=== PATIENT | female | born 1965 | race Caucasian/White ===

== ENCOUNTER 2022-04-14 07:24 | Outpatient (CLI) | payer OTHER, SELFPAY ==
[2022-04-14 07:39] VITALS: BMI 29.1
--- NOTE | 2022-04-14 07:40 | ECG_ITS ---
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 Interpretive Statements NAME OF STUDY: EXERCISE SESTAMIBI STRESS TEST INDICATION: Chest Pain Baseline blood pressure of 158/98 mm Hg, heart rate of 77 beats per minute and oxygen saturation 97%. EKG showed normal sinus rhythm. Possible old inferior myocardial infarction. Poor anterior R wave progression. The patient exercised for 4 minutes 5 seconds on a standard Kody protocol. Patient attained a maximum heart rate of 164 beats per minute(100% of the maximum predicted heart rate) with a blood pressure at the peak exercise of 176/104 mm Hg and oxygen saturation of 99%. The EKG at the peak exercise revealed sinus tachycardia with no significant ST-T wave changes. Patient did not have any chest pain or any significant arrhythmis with the exercise During the recovery phase, there were no new changes. Blood pressure at the end of the recovery phase was 161/94 mm Hg with a heart rate of 88 beats per minute and oxygen saturation of 98%. CONCLUSION: 1. Normal EKG response to treadmill exercise. 2. No exercise-induced chest pain or cardiac arrhythmia. 3. Decreased exercise tolerance, attained a maximum of 7 METs. 4. Baseline hypertension with normal response to exercise. Exaggerated heart rate response to exercise suggestive of deconditioning. 5. Perfusion scan will be documented separately. Electronically Signed On 04-14-2022 17:42:57 CDT by Nicolasa Howell M.D. [id number]
--- NOTE | 2022-04-14 07:41 | NMCV_ITS ---
[facility] [place] perf SPECT r/s* [id number] Deb Saldaña Age: 56 Gender: F : 1965 Exam Date: 04/14/2022 07:41 Ordering Phys: Narinder Madrigal DO Technologist: LAM Nielsen Exam Location: [facility] Indications: CHEST PAIN STRESS TEST [facility] IMAGE PROTOCOL Rest/Stress 1 Exercise Day Radiopharmaceutical Dose (mCi) Administration Site Administered by Rest: Tc-99m 10.9 IV LAM Gibson Sestamibi Stress:Tc-99m 32.6 IV LAM Gibson Sestamibi Rest: 14-Apr-2022 60 Discovery 630 Stress: 14-Apr-2022 15 Discovery 630 Radiopharmaceutical was injected at 87 % maximum heart rate. Supine position only as patient was unable to lay prone. SPECT RESULTS Technical Quality: Excellent Raw Data Analysis: Normal Image Corrections: No attenuation or motion correction applied Summed Stress Score: 0 Summed Rest Score: 0 Summed Difference Score: 0 PERFUSION FINDINGS SPECT images demonstrate homogeneous tracer distribution throughout the myocardium. FUNCTIONAL RESULTS (calculated via Gated SPECT) Stress Image LV EF (%): 88 Stress EDV (mL):50 TID: 0.89 Stress ESV (mL):6 FUNCTIONAL FINDINGS: The left ventricle is normal in size. Transient Ischemia Dilatation of 0.89. The left ventricular ejection fraction is hyperdynamic with a value of 88%. There is hyperdynamic left ventricular wall thickening. IMPRESSIONS 1. Myocardial perfusion imaging is normal. 2. Overall left ventricular systolic function is hyperdynamic without regional wall motion abnormalities, LVEF=88%. 3. No EKG changes with exercise. Refer to separate report for details. Nicolasa Howell MD (Electronically Signed) Final Date: 14 April 2022 17:35 S
[2022-04-14 09:48] VITALS: BP 161/94; PULSE 87
== END 2022-04-14 07:25 | disposition home or self-care (01) ==
PROVIDERS: PCP Internal Medicine; Visit Provider Internal Medicine
DX: R07.9 Chest pain, unspecified (principal)
CPT/HCPCS: 78452; 93017; A9500

== ENCOUNTER → 2024-01-21 10:11 | Outpatient (BNVA) | payer SELFPAY | PROVIDERS: PCP Internal Medicine; Visit Provider Nurse Practitioner | DX: U07.1 COVID-19 (principal) | CPT/HCPCS: 87426 ==